=== PATIENT | female | born 1970 | race Caucasian/White ===

== ENCOUNTER 2021-09-05 06:32 | Day surgery (SDC) | payer MEDICAID ==
[~2021-09-05] VITALS: Ht 154.9 cm; Wt 68.0 kg
[2021-09-05 06:53] LABS: HCG,QUAL RESULT NEGATIVE (NEGATIVE)
[2021-09-05] MEDS ORDERED: CLINDAMYCIN PHOS 600 MG/ D5W 50 ML PREMIX IV ONE (07:00)
[2021-09-05] MEDS ORDERED: PROPOFOL 200MG/ 20ML VIAL (DIPRIVAN) IV ONE (09:43)
[2021-09-05] MEDS ORDERED: NS IRRIG SOLN 1000 ML IR ONE (09:43)
[2021-09-05] MEDS ORDERED: OXYMETAZOLINE HCL 0.05% NASAL SPRAY NS ONE (09:43)
[2021-09-05] MEDS ORDERED: LR 1,000 ML IV.SOLN IV ONE (09:43)
[2021-09-05] MEDS ORDERED: LIDOCAINE/EPI MPF 1%1:200000 30 ML VIAL ONE (09:43)
[2021-09-05] MEDS ORDERED: SEVOFLURANE 15 MIN GAS INH ONE (09:43)
[2021-09-05] MEDS ORDERED: fentaNYL CITRATE/PF 100 MCG/2 ML AMP ONE (09:43)
[2021-09-05] MEDS ORDERED: ROCURONIUM BROMIDE 10 MG/ML (ZEMURON) ONE (09:43)
[2021-09-05] MEDS ORDERED: MIDAZOLAM HCL 2 MG/2 ML VIAL (VERSED) ONE (09:43)
[2021-09-05] MEDS ORDERED: KETOROLAC TROMETHAMINE 30 MG VIAL IVP PRN (11:00)
[2021-09-05] MEDS ORDERED: ONDANSETRON HCL 4 MG/2 ML VIAL IVP PRN ×2 (11:00→12:45)
[2021-09-05] MEDS ORDERED: HYDROmorphone 1 MG/ML INJ. CARTRIDGE IVP PRN (11:00)
[2021-09-05] MEDS ORDERED: IBUPROFEN 600 MG TABLET PO ONE (11:30)
[2021-09-05] MEDS ORDERED: MIDAZOLAM HCL 5 MG/5 ML VIAL IVP PRN (12:15)
[2021-09-05] MEDS ORDERED: NALOXONE HCL 0.4 MG/ML AMP (NARCAN) IVP PRN (12:45)
[2021-09-05] MEDS ORDERED: ACETAMINOPHEN/CODEINE 300 MG-30 MG TABLET PO PRN (12:45)
[2021-09-05] MEDS ORDERED: ONDANSETRON 4 MG ODT TAB PO PRN (12:45)
[2021-09-05] MEDS ORDERED: ACETAMINOPHEN 500 MG TABLET PO PRN (12:45)
[2021-09-05 17:00] VITALS: BP_SYST 132
== END 2021-09-05 14:50 | disposition home or self-care (01) ==
LOC: SDS 06:32 → SMU 06:33 → SDS 14:50
PROVIDERS: ATTEND Otolaryngology
DX: J32.9 Chronic sinusitis, unspecified (principal); J33.0 Polyp of nasal cavity; E11.9 Type 2 diabetes mellitus without complications; F41.9 Anxiety disorder, unspecified; G40.909 Epilepsy, unspecified, not intractable, without status epilepticus; Z20.822 Contact with and (suspected) exposure to COVID-19; Z79.899 Other long term (current) drug therapy
CPT/HCPCS: 31257; 31267; 31296; 36415; 61782; 84703; 87426; 88304; 93005; C1726; J2704; J3010; J3465; J3490; J7120